=== PATIENT | female | born 1985 | race Caucasian/White ===

== ENCOUNTER 2018-02-10 20:04 | Emergency (ER) | payer MEDICAID, OTHER ==
[~2018-02-10] VITALS: Ht 157.5 cm; Wt 83.0 kg
[2018-02-10 20:04] VITALS: BP 134/100
[~2018-02-10 20:04] MED LIST: IBUP-974 PO
--- NOTE | 2018-02-10 20:04 | NUR ---
PATIENT AMBULATED TO ER BED 11.
--- NOTE | 2018-02-10 20:19 | NUR ---
PT PRESENTS TO ED WITH C/O GENERALIZED BODY RASH X 1 WEEK. PT DENIES CP/SOB. SPEAKING IN FULL, CLEAR SENTENCES. NO DISTRESS NOTED. PT PLACED INTO BED, PENDING MD LEMUS. PMH--NONE RX--NONE
--- NOTE | 2018-02-10 20:33 | NUR ---
Dr. Hastings evaluating patient at bedside.
[2018-02-10 20:47] VITALS: BP 134/100
--- NOTE | 2018-02-10 20:48 | NUR ---
Patient discharged with v/s stable. Written and verbal after care instructions given and explained. Patient alert, oriented and verbalized understanding of instructions. Ambulatory with steady gait. All questions addressed prior to discharge. ID band removed. Patient advised to follow up with PMD. Rx of PERMETHRIN given. Patient educated on indication of medication including possible reaction and side effects. Opportunity to ask questions provided and answered.
== END 2018-02-10 20:48 | disposition home or self-care (01) ==
LOC: MED 20:04
DX: B86 Scabies (principal); Z79.1 Long term (current) use of non-steroidal anti-inflammatories (NSAID)
CPT/HCPCS: 99282